=== PATIENT | female | born 1965 | race Caucasian/White ===

== ENCOUNTER 2016-05-28 18:45 | Emergency (ER) | payer MEDICARE, MEDICAID ==
[2016-05-28] MEDS ORDERED: DUONEB INH ONE ×2 (21:32)
[2016-05-28] MEDS ORDERED: AZITHROMYCIN 250 MG TAB ONE (21:54)
[2016-05-28] MEDS ORDERED: PREDNISONE 10 MG TAB ONE (21:54)
[2016-05-28] MEDS ORDERED: PREDNISONE 50 MG TAB ONE (21:55)
== END 2016-05-28 23:31 | disposition home or self-care (01) ==
LOC: ER 18:45
DX: J44.0 Chronic obstructive pulmonary disease with (acute) lower respiratory infection (principal); J20.9 Acute bronchitis, unspecified; J44.1 Chronic obstructive pulmonary disease with (acute) exacerbation
CPT/HCPCS: 71020; 94640; 99283; J7512